=== PATIENT | female | born 1970 | race African-American/Black ===

== ENCOUNTER 2021-10-03 13:43 | Emergency (ER) | payer BC, OTHER ==
[~2021-10-03] VITALS: Ht 167.6 cm; Wt 122.5 kg
[2021-10-03 15:21] LABS: ABSOLUTE NEUTROPHILS 15.1 thou/uL (1.4-8.2); BASOPHILS 0.3 % (0.0-2.0); EOSINOPHILS 0.7 % (0.0-3.0); HEMATOCRIT 40.1 % (37.0-47.0); HEMOGLOBIN 12.4 gm/dL (12.0-15.0); LYMPHOCYTES 6.2 % (24.0-44.0); MCH 22.5 pg (26.0-34.0); MCV 72.6 fL (80.0-100.0); MONOCYTES 4.1 % (1.0-8.0); PLATELET COUNT 341 thou/uL (150-400); POLYS 88.7 % (36.0-66.0); RBC 5.52 mil/uL (4.20-5.00); RDW 14.7 % (10.5-14.5); URINE BILIRUBIN NEGATIVE (Negative); URINE BLOOD 2+ (Negative); URINE CLARITY CLEAR; URINE COLOR YELLOW; URINE GLUCOSE-RANDOM* NEGATIVE (Negative); URINE KETONES NEGATIVE (Negative); URINE LEUKOCYTES-REFLEX NEGATIVE (Negative); URINE NITRITE-REFLEX NEGATIVE (Negative); URINE PROTEIN (DIPSTICK) NEGATIVE (Negative); URINE SPECIFIC GRAVITY 1.025 (1.005-1.035); URINE UROBILINOGEN 0.2 E.U./dl (0.2-1.0)
[2021-10-03 15:29] LABS: CALCIUM 9.2 mg/dL (8.5-10.1)
[2021-10-03 15:35] LABS: ALBUMIN 3.3 g/dL (3.4-5.0); TOTAL BILIRUBIN 0.3 mg/dL (0.2-1.0); TOTAL PROTEIN 7.8 g/dL (6.4-8.2)
[2021-10-03 15:38] LABS: SQUAMOUS 4-10 Moderate /LPF (0-3); URINE RBC 3-10 Few /HPF (NONE SEEN)
[2021-10-03 15:39] LABS: CASTS None Seen /LPF (None Seen); CRYSTALS None Seen /LPF (None Seen); URINE WBC-REFLEX 6-15 Few /HPF (0-5)
[2021-10-03 16:13] LABS: HYPOCHROMASIA 1+; MICROCYTES 1+
[2021-10-03] MEDS ORDERED: NORCO5 PO (18:53)
[2021-10-03] MEDS ORDERED: ZOFRAN ODT4 MG PO (18:53)
[2021-10-03] MEDS ORDERED: CIPRO500 M1 PO (18:53)
[2021-10-03] MEDS ORDERED: METRONIDAZOLE500 M4 PO (18:53)
[2021-10-03 19:45] VITALS: BP 176/98
--- NOTE | 2021-10-04 08:03 | EKG ---
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
== END 2021-10-03 19:40 | disposition home or self-care (01) ==
LOC: ER 13:43
PROVIDERS: Family Medicine
DX: K52.9 Noninfective gastroenteritis and colitis, unspecified (principal); N21.0 Calculus in bladder; I10 Essential (primary) hypertension; Z86.718 Personal history of other venous thrombosis and embolism; Z88.8 Allergy status to other drugs, medicaments and biological substances; Z88.0 Allergy status to penicillin; Z88.2 Allergy status to sulfonamides